=== PATIENT | male | born 1960 | race Caucasian/White ===

== ENCOUNTER 2017-11-03 00:36 | Emergency (ER) | payer OTHER ==
[~2017-11-03] VITALS: Ht 188 cm; Wt 104.3 kg
--- NOTE | 2017-11-03 00:57 | ED GENERAL ADULT ---
History of Present Illness General Chief Complaint: General Adult Stated Complaint: TROUBLE SLEEPING, NECK PAIN Source: patient Exam Limitations: no limitations Vital Signs & Intake/Output Vital Signs & Intake/Output Vital Signs Date Time Temp Pulse Resp B/P B/P Pulse O2 O2 Flow FiO2 Mean Ox Delivery Rate 11/03 0056 98.1 75 17 160/90 99 Room Air Allergies Coded Allergies: No Known Allergies (11/03/17) Reconcile Medications Atorvastatin Calcium 20 MG TABLET 1 TAB PO DAILY HEART HEATLH (Reported) Lisinopril 10 MG TABLET 1 TAB PO DAILY HEART HEALTH (Reported) LORazepam (Ativan) 1 MG TAB 1 TAB PO BID PRN insomnia six .... [id number] Triage Nurses Notes Reviewed? yes Onset: Gradual Duration: day(s): Timing: recent history Injury Environment: home Severity: mild Modifying Factors: Improves With: rest. Associated Symptoms: "I can't sleep" HPI: 57-year-old gentleman history of hypertension and hypercholesterolemia presents with 1-2 days of neck pain and several weeks of difficulty sleeping. He states that after he went to the gym yesterday he felt right shoulder pain. He notes that he has a stuffy nose which she attributes to allergies. He does not have chest pain but he did share that he felt a pressure in his lower neck. It was nonradiating. It was not associated with diaphoresis dizziness shortness of breath or syncopal symptoms. He notes, "I always been a light sleeper. I just need something help me sleep. " Past History Travel History Traveled to [place] past 21 day No Medical History Any Pertinent Medical History? see below for history Cardiovascular: hypertension, hyperlipidemia Surgical History Surgical History: non-contributory Family History Hx Contributory? No Review of Systems Review of Systems Constitutional: Reports: no symptoms. EENTM: Reports: no symptoms. Respiratory: Reports: no symptoms. Cardiovascular: Reports: no symptoms. GI: Reports: no symptoms. Genitourinary: Reports: no symptoms. Musculoskeletal: Reports: no symptoms. Skin: Reports: no symptoms. Neurological/Psychological: Reports: no symptoms. Hematologic/Endocrine: Reports: no symptoms. Immunologic/Allergic: Reports: no symptoms. All Other Systems: Reviewed and Negative Physical Exam Physical Exam General Appearance: well developed/nourished, no apparent distress Comments: Review of Systems -negative except as otherwise noted in HPI All Other Systems: Reviewed and Negative Physical Exam Physical Exam General Appearance: well developed/nourished, no apparent distress Head: atraumatic, normal appearance Eyes: Bilateral: normal appearance. Ears, Nose, Throat: normal pharynx, normal ENT inspection Neck: normal inspection, supple, full range of motion, bilateral trapezial muscle spasm and mild tenderness to palpation. Respiratory: normal breath sounds, chest non-tender, no respiratory distress, quiet respiration, lungs clear Cardiovascular: regular rate/rhythm Gastrointestinal: normal bowel sounds, soft, non-tender, no organomegaly Back: normal inspection, normal range of motion Extremities: normal inspection, normal capillary refill, normal range of motion, no edema Neurologic/Psych: no motor/sensory deficits, awake, alert, oriented x 3 Skin: intact, normal color, warm/dry Core Measures ACS in differential dx? No CVA/TIA Diagnosis: No Sepsis Present: No Sepsis Focused Exam Completed? No Progress Differential Diagnoses I considered the following diagnoses in my evaluation of the patient: insomnia, KADEN, vs other. Plan of Care: Orders Procedure Date/time Status TROPONIN LEVEL 11/03 205 Complete HEPATIC FUNCTION PANEL 11/03 205 Complete CBC WITHOUT DIFFERENTIAL 11/03 205 Complete BASIC METABOLIC PANEL 11/03 205 Complete EKG 11/03 0134 Active Laboratory Tests 11/03/17 0227: Anion Gap 11, Estimated GFR > 60, BUN/Creatinine Ratio 26.0 H, Glucose 97, Calcium 9.3, Total Bilirubin 0.4, Direct Bilirubin 0, AST 27, ALT 41, Alkaline Phosphatase 66, Troponin I < 0.01, Total Protein 6.9, Albumin 4.2, CBC w Diff NO MAN DIFF REQ, RBC 4.67 L, MCV 90.6, MCH 30.4, MCHC 33.6, RDW 12.8, MPV 7.9, Gran % 67.1, Lymphocytes % 22.1, Monocytes % 7.8, Eosinophils % 2.5, Basophils % 0.5, Absolute Granulocytes 4.5, Absolute Lymphocytes 1.5, Absolute Monocytes 0.5 , Absolute Eosinophils 0.2, Absolute Basophils 0 Diagnostic Imaging: Viewed by Me: Radiology Read. Discussed w/RAD: Radiology Read. CXR Impression: PATIENT: LINK FOY III PRESENT AGE: 57 PATIENT ACCOUNT NO: [id number] : 58 LOCATION: [facility] ORDERING PHYSICIAN: Matias Corley MD SERVICE DATE: 11/03/17 EXAM TYPE: RAD - XRY-PORTABLE CHEST XRAY EXAMINATION: XR PORTABLE CHEST CLINICAL INFORMATION: Chest pain COMPARISON: None TECHNIQUE: Portable frontal view of the chest was obtained. FINDINGS: The lungs are clear with no focal consolidation. No evidence of pneumothorax, pulmonary edema, or pleural effusions. The cardiomediastinal silhouette is unremarkable. No acute osseous findings. IMPRESSION: No acute cardiopulmonary findings. DICTATED BY: Rohith Bryson MD DATE/TIME DICTATED:11/03/17302 MAINTAINABILITY ENGINEER:IGGY DATE/TIME TRANSCRIBED:11/03/17302 CONFIDENTIAL, DO NOT COPY WITHOUT APPROPRIATE AUTHORIZATION. <Electronically signed in Other Vendor System> SIGNED BY: Rohith Bryson MD 11/03/17306 Initial ED EKG: nsr, flipped T in III, borderline Left axis, otherwise benign Departure Departure Disposition: HOME OR SELF CARE Condition: Stable Clinical Impression Primary Impression: Acute insomnia Secondary Impressions: Musculoskeletal pain Referrals: Patient Has No Primary Care Dr (PCP/Family) Departure Forms: Customer Survey General Discharge Information Prescriptions: Current Visit Scripts LORazepam (Ativan) 1 TAB PO BID PRN insomnia #6 TAB six .... [id number] Comments 11/03/17, 3:17am... pt has had symptoms for more than 1 day... his evaluation is benign, notable for insomnia, possibly KADEN, with upper back/neck muscle spasm.... close follow up advised. Critical Care Note Critical Care Note Critical Care Time: non-applicable
[2017-11-03] MEDS ORDERED: ATORVASTATIN CA20 M1 PO (01:03)
[2017-11-03] MEDS ORDERED: LISINOPRIL10 M1 PO (01:03)
[2017-11-03] MEDS ORDERED: ATIVAN1 M1 PO (01:37)
[2017-11-03 02:34] LABS: ABSOLUTE BASOPHIL COUNT 0 /CUMM (0.0-0.2); ABSOLUTE EOSINOPHIL COUNT 0.2 /CUMM (0.0-0.7); ABSOLUTE GRANULOCYTE CT 4.5 /CUMM (1.4-6.5); ABSOLUTE LYMPH COUNT 1.5 /CUMM (1.2-3.4); ABSOLUTE MONOCYTE COUNT 0.5 /CUMM (0.10-0.60); BASOPHIL % 0.5 % (0.0-2.0); EOSINOPHIL % 2.5 % (0-5); GRANULOCYTE % 67.1 % (42.2-75.2); HEMATOCRIT 42.3 % (42-52); MEAN CORPUSCULAR HGB 30.4 PG (27.0-31.0); MEAN CORPUSCULAR HGB CONC 33.6 G/DL (33.0-37.0); MEAN CORPUSCULAR VOLUME 90.6 FL (80.0-94.0); MEAN PLATELET VOLUME 7.9 FL (7.4-10.4); PLATELET COUNT 193 /CUMM (130-400); RBC DISTRIBUTION WIDTH 12.8 % (11.5-14.5); RED BLOOD CELL CT 4.67 /CUMM (4.70-6.10); WHITE BLOOD CELL COUNT 6.7 /CUMM (4.8-10.8)
--- NOTE | 2017-11-03 03:07 | RADIOLOGY REPORT ---
EXAMINATION: XR PORTABLE CHEST CLINICAL INFORMATION: Chest pain COMPARISON: None TECHNIQUE: Portable frontal view of the chest was obtained. FINDINGS: The lungs are clear with no focal consolidation. No evidence of pneumothorax, pulmonary edema, or pleural effusions. The cardiomediastinal silhouette is unremarkable. No acute osseous findings. IMPRESSION: No acute cardiopulmonary findings.
[2017-11-03 03:30] VITALS: BP 138/88
== END 2017-11-03 03:31 ==
LOC: ERH 00:36
PROVIDERS: Pediatrics
DX: G47.00 Insomnia, unspecified (principal); M79.1 Myalgia; M54.2 Cervicalgia
CPT/HCPCS: 71045; 93005; 93010